=== PATIENT | female | born 1970 | race Caucasian/White ===

== ENCOUNTER 2019-03-03 05:58 | Day surgery (SDC) | payer BC, OTHER ==
[~2019-03-03] VITALS: Ht 154.9 cm; Wt 63.5 kg
[2019-03-03 07:15] VITALS: Ht 154.9 cm; Wt 63.5 kg
[2019-03-03 08:00] VITALS: BP 158/74; PULSE 53; RESP 15
[2019-03-03 08:36] VITALS: BP 113/59; PULSE 46; RESP 20
[2019-03-03 08:41] VITALS: BP 117/62; PULSE 48; RESP 18
[2019-03-03] MEDS ORDERED: MIDAZOLAM 1 MG/ML 2 ML INJ ONE ×2 (08:43→08:44)
[2019-03-03] MEDS ORDERED: FENTAnyl 50 MCG/ML VIAL ONE (08:44)
[2019-03-03 08:54] VITALS: BP 115/86; PULSE 48; RESP 18
== END 2019-03-03 15:03 | disposition home or self-care (01) ==
LOC: GIL 05:58
PROVIDERS: ATTEND Internal Medicine Gastroenterology
DX: K64.8 Other hemorrhoids (principal)
CPT/HCPCS: 45378; 84703; J2250; J3010; Z7610